=== PATIENT | female | born 1975 | race Caucasian/White ===

== ENCOUNTER 2022-10-22 22:38 | Emergency (ER) | payer BC, OTHER ==
[~2022-10-22] VITALS: Ht 165.1 cm; Wt 47.2 kg
--- NOTE | 2022-10-22 23:10 | NUR ---
Dr. bella at bedside. MSE in progress.
[2022-10-22] MEDS ORDERED: CEFD300C3 PO (23:25)
[2022-10-22] MEDS ORDERED: GUAI-671 PO (23:25)
[2022-10-22 23:31] VITALS: BP 118/75
--- NOTE | 2022-10-22 23:31 | NUR ---
Patient discharged to home in stable condition. Written and verbal after care instructions given. Patient verbalizes understanding of instructions. Stressed follow up or return to ER for worsening s/s. Patient is a/ox4, NAD noted. patient ambulated with steady gait.
== END 2022-10-22 23:32 | disposition home or self-care (01) ==
LOC: ER 22:38
DX: J20.9 Acute bronchitis, unspecified (principal); Z79.899 Other long term (current) drug therapy
CPT/HCPCS: A4663